=== PATIENT | male | born 1935 | race Caucasian/White ===

== ENCOUNTER 2019-10-13 15:43 | Inpatient (IN) | payer MEDICARE ==
[~2019-10-13 15:43] MED LIST: ARICEPT5 MG PO; BAYER CHEWABLE81 MG PO; SYNTHROID100 MCG PO; VITAMIN D5000 UNIT PO
[2019-10-13] MEDS ORDERED: AUGMENTIN 875-11 TAB (16:43)
[2019-10-13] MEDS ORDERED: CIMETIDINE200 MG (16:44)
[2019-10-13] MEDS ORDERED: CLARITIN 10 MG10 MG (16:45)
[2019-10-13] MEDS ORDERED: HYDROCORTISO28.35 G1 (16:45)
[2019-10-13] MEDS ORDERED: MELATONIN 3 MG1 TAB PO (16:46)
[2019-10-13] MEDS ORDERED: MYSOLINE 50 MG50 MG (16:47)
[2019-10-13] MEDS ORDERED: SENNA LAXATIVE8.6 MG (16:48)
[2019-10-13] MEDS ORDERED: TIROSINT100 MCG PO (16:49)
[2019-10-13] MEDS ORDERED: BAYER CHEWABLE81 MG PO (16:50)
[2019-10-13] MEDS ORDERED: ZOLOFT50 MG PO (16:50)
[2019-10-13] MEDS ORDERED: ROCEPHIN 500 M500 M1 IV (16:55)
[2019-10-13] MEDS ORDERED: TYLENOL ARTHRI650 MG PO (16:56)
[2019-10-13] MEDS ORDERED: ZOFRAN4 MG PO (16:57)
[2019-10-13] MEDS ORDERED: HEPARIN SOD5000 U/ML IV (16:58)
[2019-10-13] MEDS ORDERED: FAMOTIDINE10 MG PO (16:58)
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
[2019-10-13 17:16] VITALS: BP 139/61; BMI 23.3
[2019-10-13 20:10] VITALS: BP 128/63
--- NOTE | 2019-10-14 02:19 | NUR ---
B) RECEIVED IN DAYROOM, WATCHING TV, ISOLATED FROM PEERS, VERY CONFUSED ON ASSESSMENT, ONLY ORIENTED TO SELF. HE AMBULATES INDEPENDENTLY AND CAN MAKE HIS NEEDS KNOWN. EARLIER TONIGHT HE WANTED TO TAKE A SHOWER, SUDDENLY HE CHANGED HIS MIND AND REFUSED. THEN HE WENT TO BED WITHOUT ANY AGGRESSIVE BEHAVIOR. ALL BANDAIDS WERE REMOVED BY PATIENT AND HE REFUSED FOR ANY MORE TO BE APPLIED. I) ADMINISTERED MEDICATIONS. REDIRECT AND REORIENT NEEDED. R) COMPLIANT WITH MEDICATIONS. MONITOR FOR SAFETY AND BEHAVIORS. P) CONTINUE POC.
[2019-10-14 07:51] LABS: CHOL - HDL RATIO 4.3 ratio (2.3-4.9); THYROID STIMULATING HORMONE 8.96 uIU/mL (0.36-3.74)
[2019-10-14 09:30] VITALS: BP 101/54
[2019-10-14 10:00] VITALS: Wt 79.7 kg
--- NOTE | 2019-10-14 11:09 | NUR ---
RECEIVED SITTING UP IN CHAIR THIS AM.IS ORIENTED TO SELF,TOWN,HOSPITAL.READS MONTH AND YEAR OFF WALL CALENDER.COMPLIANT WITH STAFF AND MEDS.VISITS WITH PEERS.WILL CONTINUE WITH CURRENT PLAN OF CARE,MONITOR FOR SAFETY AND CHANGES.
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
[2019-10-14 19:16] VITALS: BP 125/71
--- NOTE | 2019-10-14 21:09 | NUR ---
B.) PT IS ALERT AND ORIENTED TO SELF AND PLACE. HE IS RECEIVED IN THE DAYROOM SOCIALIZING WITH PEERS. HE IS CALM, COOPERATIVE AND PLEASANT WITH STAFF. HE IS ABLE TO VOICE NEEDS AND WANTS. HE IS ABLE TO AMBULATE ON HIS OWN WITHOUT ASSIST. HE DENIES SI. I.) PROVIDED PM MEDICATIONS PRESCRIBED. REDIRECT NEEDED. R.) COMPLIANT WITH ALL MEDICATIONS. EASY TO REDIRECT. P.) WILL CONTINUE TO MONITOR.
--- NOTE | 2019-10-15 07:45 | NUR ---
REC'D PT IN HALLWAY WITH PEERS BY NURSES STATION. PT AWAKE AND ALERT TO PERSON AND PLACE. CALM AND COOPERATIVE WITH ASSESSMENT WITH CONFUSION NOTED. PRESCRIBED MEDS PROVIDED ORDERED. MED COMPLIANT. PT SELF ISOLATES AT TIMES. REDIRECT AND REORIENT NEEEDED. FALL PRECAUTIONS IN PLACE. WILL CPOC.
[2019-10-15 09:47] VITALS: BP 117/66
[2019-10-15 20:14] VITALS: BP 141/69
--- NOTE | 2019-10-15 20:15 | NUR ---
RECEIVED IN DAYROOM. SITTING CALMLY WITH PEERS AT HIS SIDE. CALM AND COOPERATIVE WITH CARE AND ASSESSMENT. NO SIGNS OF AGGRESSION. REDIRECT AND REORIENT NEEDED. CONTINUES TO SIT CALMLY IN DAYROOM. CONTINUE PLAN OF CARE.
--- NOTE | 2019-10-16 01:00 | NUR ---
[facility] CALLED TO CHECK ON PATIENT AND ALSO INFORMED STAFF THAT HE HAS A PROBLEM WITH PROPOSITIONING OTHER MALES TO PERFORM SEXUAL ACTS ON HIM AT [facility].
[2019-10-16 09:19] VITALS: BP 122/74
--- NOTE | 2019-10-16 10:40 | NUR ---
Nutrition Follow-up: Diet: Regular PO intake: 75-100% all Last BM: 10/14/19. WT: 173.2# (10/15/19); Admit Wt: 170# (10/13/19) Meds reviewed. No new labs. Recommend continue current diet. RD following.
--- NOTE | 2019-10-16 12:00 | NUR ---
RECEIVED IN HALLWAY OUTSIDE OF NURSES STATION. CALM AND COOPERATIVE WITH CARE AND ASSESSMENT. NO AGGRESSIVE BEHAVIORS. REDIRECT AND REORIENT NEEDED. EATING AT THIS TIME. CONTINUE PLAN OF CARE.
[2019-10-16 20:28] VITALS: BP 141/58
--- NOTE | 2019-10-16 22:38 | NUR ---
RECEIVED IN DAYROOM. SITTING IN A CHAIR WITH PEERS AT HIS SIDE. CALM AND COOPERATIVE WITH CARE AND ASSESSMENT. NO SIGNS OF AGGRESSION. REDIRECT AND REORIENT NEEDED. RESTING IN BED WITH EYES CLOSED AT THIS TIME. CONTINUE PLAN OF CARE.
[2019-10-17 05:10] LABS: RAPID PLASMA REAGIN Non Reactive (Non Reactive)
--- NOTE | 2019-10-17 10:02 | PN ---
PATIENT:THIEN MCFADDEN MEDICAL RECORD: [id number] LOCATION:DESTINEY Ye112 ADMISSION DATE: 10/13/19 PROGRESS NOTE DATE OF SERVICE: 10/16/2019 SUBJECTIVE: The patient's case was discussed with staff. He has no new complaint. OBJECTIVE: The patient is partially oriented. He has not been disruptive. His mood is euthymic. He is cooperative. He is delusional about the reasons that brought him here and is talking about things that are not connected or really understandable. ASSESSMENT: Vascular dementia. PLAN: I have reviewed the patient's current medications and will maintain them. If this level of improvement continue, I anticipate that this would be a brief hospitalization. TRANSINT:[id number] Voice Confirmation ID: [id number] DOCUMENT ID: [id number] ZOEY SUTHERLAND MD at 1002 CC: [id number] DICTATION DATE: 10/16/19 1652 HONING JOB SETTER: 10/17/[address] [facility] [address] [place] [address]
[2019-10-17 10:17] VITALS: BP 138/88
--- NOTE | 2019-10-17 12:00 | NUR ---
RECEIVED IN HALLWAY OUTSIDE OF NURSES STATION. CALM AND COOPERATIVE WITH CARE AND ASSESSMENT. NO AGGRESSIVE BEHAVIOR. REDIRECT AND REORIENT NEEDED. EATING AT THIS TIME. CONTINUE PLAN OF CARE.
[2019-10-17 20:53] VITALS: BP 135/39
--- NOTE | 2019-10-17 22:01 | NUR ---
RECEIVED IN DAYROOM. SITTING IN A CHAIR WITH PEERS AT HIS SIDE. CALM AND COOPERATIVE WITH CARE AND ASSESSMENT. NO SIGNS OF AGGRESSION. REDIRECT AND REORIENT NEEDED. CONTINUES TO SIT CALMLY IN DAYROOM. CONTINUE PLAN OF CARE.
--- NOTE | 2019-10-18 11:18 | NUR ---
pt sitting in chair at this time. pt is friendly with staff and peers. pt is alert to self only. confusion noted. pt is ADL independent. pt can make needs known. previous shift reported no behaviors. pt is compliant with meds, vitals and assessments. no beahviors noted at this time. will cont plan of care.
--- NOTE | 2019-10-18 13:27 | PN ---
PATIENT:THIEN MCFADDEN MEDICAL RECORD: [id number] LOCATION:MARISSAJennifer Belcher112 ADMISSION DATE: 10/13/19 PROGRESS NOTE DATE OF SERVICE: 10/17/2019 SUBJECTIVE: The patient's case was discussed with staff. He has no new complaint. OBJECTIVE: The patient denies intent to harm himself or others. He does tolerate his medicines well. He has limited insight about his situation. ASSESSMENT: Vascular dementia. PLAN: I am going to reduce the patient's melatonin to 3 mg at bedtime. He will be monitored for clinical changes associated with its use. TRANSINT:[id number] Voice Confirmation ID: [id number] DOCUMENT ID: [id number] ZOEY SUTHERLAND MD at 1327 CC: [id number] DICTATION DATE: 10/17/19 1603 BAGMAN/WOMAN: 10/17/19 2324 ADM IN [place] [id number] [place] [address]
--- NOTE | 2019-10-18 13:57 | NUR ---
Nutrition Follow-up: Diet: Regular PO intake: 100% x last 9 meals Last BM: 10/14/19. Wt: 173.2# (10/15/19); Admit Wt: 172# (10/13/19) Meds reviewed. No new labs. Recommend continue current diet. RD following.
[2019-10-18 14:18] VITALS: BP 126/63
[2019-10-18 20:00] VITALS: BP 129/69
--- NOTE | 2019-10-18 22:00 | NUR ---
RECEIVED IN DAY ROOM WATCHING TV. CALM AND COOPERATIVE WITH ASSESSMENT. ADMINISTERED MEDICATIONS WITH COMPLIANCE. CONFUSION NOTED BUT NO BEHAVIORS NOTED. REDIRECT AND REORIENT NEEDED. CONTINUE PLAN OF CARE.
[2019-10-19 09:40] VITALS: BP 108/59
--- NOTE | 2019-10-19 10:27 | NUR ---
PT SOCIALIZING WITH OTHER PEERS AT THIS TIME. PT IS CALM AND COOPERATIVE WITH STAFF. NO AGRESSION NOTED. NO BEHAVIORS NOTED. PT IS COMPLIANT WITH MEDS, VITALS AND ASSESSMENTS. PT CAN MAKE NEEDS KNOWN. AMBUALATES. WILL CONT PLAN OF CARE.
--- NOTE | 2019-10-19 14:39 | PN ---
PATIENT:THIEN MCFADDEN MEDICAL RECORD: [id number] LOCATION:Immanuel[facility]ILJennifer Belcher112 ADMISSION DATE: 10/13/19 PROGRESS NOTE DATE OF SERVICE: 10/18/2019 SUBJECTIVE: The patient's case was discussed with staff. He has no new complaint. OBJECTIVE: The patient is in good behavioral control with poor insight about his situation. He tolerates his medicines well. ASSESSMENT: Vascular dementia. PLAN: Current medicines have been reviewed. I am going to maintain the current dose of antidepressant. I believe he can reasonably be transitioned back to the correction if this level of improvement continues. TRANSINT:[id number] Voice Confirmation ID: [id number] DOCUMENT ID: [id number] ZOEY SUTHERLAND MD at 1439 CC: [id number] DICTATION DATE: 10/18/19 1619 SPECIAL PROJECTS COORDINATOR: 10/19/19 0052 ADM IN [facility] [address] [place] [address]
[2019-10-19 20:04] VITALS: BP 136/64
--- NOTE | 2019-10-19 23:00 | NUR ---
B.) PT IS ALERT AND ORIENTED TO SELF ONLY. HE IS CALM AND COOPERATIVE WITH STAFF. HE IS PLEASANT WHEN SPOKEN TO. HE HAS A BRIGHT AFFECT. HE IS ABLE TO AMBULATE WITHOUT ASSIST. I.) PROVIDED PM MEDICATIONS PRESCRIBED. REDIRECT NEEDED. R.) COMPLIANT WITH ALL MEDICATIONS. EASY TO REDIRECT. P.) WILL CONTINUE TO MONITOR.
[2019-10-20 09:22] VITALS: BP 113/52
--- NOTE | 2019-10-20 10:33 | PN ---
PATIENT:THIEN MCFADDEN MEDICAL RECORD: [id number] LOCATION:ImmanuelAPRILJennifer Belcher112 ADMISSION DATE: 10/13/19 PROGRESS NOTE DATE OF SERVICE: 10/19/2019 SUBJECTIVE: The patient's case was discussed with staff. He has no new complaint. OBJECTIVE: The patient denies intent to harm himself or others. He is tolerating his medicines well. He has not been inappropriate with any of the staff members or other patients. ASSESSMENT: Dementia. PLAN: Supportive and educational interventions were made. He will be maintained on current medicines. TRANSINT:[id number] Voice Confirmation ID: [id number] DOCUMENT ID: [id number] ZOEY SUTHERLAND MD at 1033 CC: [id number] DICTATION DATE: 10/19/19 1452 INSPECTOR BOILER: 10/19/19 2211 ADM IN [id number] [place] [address]
--- NOTE | 2019-10-20 11:37 | NUR ---
The patient is pleasant and calm this am he has not shown any aggression toward staff or other patients. He says "I think I am going back to the [facility] Wednesday." He ambulates independently. Provide prescribed meds. The patient is compliant with meds. He has poor insight into his situation. Continue POC.
[2019-10-20 20:10] VITALS: BP 111/52
--- NOTE | 2019-10-20 22:07 | NUR ---
B.) PT IS ALERT AND ORIENTED TO SELF ONLY. HE IS ABLE TO AMBULATE ON HIS OWN WITHOUT ASSIST AND MAKE HIS NEEDS KNOWN. HE IS LABILE IN HIS MOODS AND COMPLAINS OF FATIGUE. I.) PROVIDED PM MEDICATIONS PRESCRIBED. REDIRECT NEEDED. R.) COMPLIANT WITH ALL MEDICATIONS. EASY TO REDIRECT AT TIMES. P.) WILL CONTINUE TO MONITOR.
[2019-10-21 08:27] VITALS: BP 118/68
--- NOTE | 2019-10-21 09:29 | NUR ---
The patient is awake and alert, he is pleasant and calm, he has not shown any aggression today. He has not shown any inappropriate behaviors today. He ambulates independently. Provide prescribed meds. The patient is compliant with meds. Continue POC.
--- NOTE | 2019-10-21 11:28 | PN ---
PATIENT:THIEN MCFADDEN MEDICAL RECORD: [id number] LOCATION:DESTINE[facility] Belcher112 ADMISSION DATE: 10/13/19 PROGRESS NOTE DATE OF SERVICE: 10/20/2019 SUBJECTIVE: The patient's case was discussed with staff. He has no new complaint. OBJECTIVE: The patient has not been disruptive. He is sleeping and eating well. He has not been aggressive. I do not think he really has much recollection about the problems that precipitated this admission, but he has not had disruptive behaviors or inappropriate behaviors with any of our staff or patients and can go back to the half-way as soon as they are willing or able to take him. I would recommend he be in a different room and have a different roommate. TRANSINT:[id number] Voice Confirmation ID: [id number] DOCUMENT ID: [id number] ZOEY SUTHERLAND MD at 1128 CC: [id number] DICTATION DATE: 10/20/19 1537 MARINE SPECIALIST: 10/21/19 0106 ADM IN [facility] [address] [place] [id number]
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
[2019-10-21 20:00] VITALS: BP 143/65
--- NOTE | 2019-10-21 21:05 | NUR ---
B.) PT IS ALERT AND ORIENTED TO SELF ONLY. HE HAS POOR INSIGHT INTO HIS SITUATION. HE IS RECEIVED IN THE DAYROOM SOCIALIZING WITH PEERS. HE IS CALM AND COOPERATIVE WITH STAFF AT THIS TIME. HE IS ABLE TO AMBULATE ON HIS OWN WITHTOUT ASSIST. I.) PROVIDED PM MEDICATIONS PRESCRIBED. REDIRECT NEEDED. R.) COMPLIANT WITH ALL MEDICATIONS. EASY TO REDIRECT. P.) WILL CONTINUE TO MONITOR.
[2019-10-22 10:50] VITALS: BP 121/64
--- NOTE | 2019-10-22 11:42 | NUR ---
The patient is awake and alert, he has poor insight into his situation. He is oriented x3. He ambulates independently. He has not shown any aggression while he has been here. Provide prescribed meds. The patient is compliant with meds. Continue POC.
[2019-10-22 20:37] VITALS: BP 131/65
[2019-10-23 09:21] VITALS: BP 119/71
--- NOTE | 2019-10-23 11:15 | NUR ---
PT REMOVED FROM GROUP AT THIS TIME. PT IS VERY ARGUMENTIVE WITH STAFF AT THIS TIME. PT CONTINUES TO ARGUE WITH STAFF. REDIRECT AND REORIENT NEEDED. PRESCRIBED MEDS PROVIDED ORDERED. MED COMPLIANT. WILL CPOC.
--- NOTE | 2019-10-23 12:27 | PN ---
PATIENT:THIEN MCFADDEN MEDICAL RECORD: [id number] LOCATION:[facility] Belcher112 ADMISSION DATE: 10/13/19 PROGRESS NOTE DATE OF SERVICE: 10/22/2019 SUBJECTIVE: The patient's case was discussed with staff. He has no new complaint. OBJECTIVE: The patient is partially oriented. His mood is euthymic. His affect appropriate. Thought processes are goal directed. Memory, concentration, and abstraction abilities are mildly impaired. ASSESSMENT: Dementia. PLAN: The patient can be transitioned out of the hospital soon. His long-term prognosis is guarded. TRANSINT:[id number] Voice Confirmation ID: [id number] DOCUMENT ID: [id number] ZOEY SUTHERLAND MD at 1227 CC: [id number] DICTATION DATE: 10/22/19 1402 CUSTOMER GREETER: 10/23/19 0146 ADM IN [facility] [address] [place] [address]
[2019-10-23 20:05] VITALS: BP 122/61
--- NOTE | 2019-10-24 02:29 | NUR ---
B) Patient is alert and oriented to person, short with staff at times, wanting to go home I) Administered scheduled medications as ordered, monitored for safety R) Mediation compliant, resting now quietly in bed asleep P) Continue plan of care.
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
[2019-10-24 09:53] VITALS: BP 113/52
--- NOTE | 2019-10-24 16:13 | NUR ---
PT SITTING AND TALKING WITH PEERS AT THIS TIME. NO ACUTE DISTRESS NOTED. PT IS COMPLIANT WITH MEDS, VITALS AND ASSESSMENT. PT CAN MAKE NEEDS KNOWN. PT AMBULATES. PT IS ALERT TO SELF ONLY AND CAN BE ARGUMENTIVE WITH STAFF. NO SIGNS OF AGGRESSION NOTED. REDIRECT AND REORIENT NEEDED. WILL CONT PLAN OF CARE.
[2019-10-24 20:28] VITALS: BP 152/54
--- NOTE | 2019-10-24 22:44 | NUR ---
B) Patient is alert and oriented to person, calm and cooperative with care I) Administered scheduled medications, redirected as needed R) Mediation compliant, follows instructions, P) Continue plan of care.
[2019-10-25 09:16] VITALS: BP 122/68
--- NOTE | 2019-10-25 11:04 | NUR ---
PT IN DAYROOM WITH PEERS. ATTENDING GROUP AT THIS TIME. CALM AND COOPERATIVE WITH ASSESSMENT. PRESCRIBED MEDS PROVIDED ORDERED. MED COMPLIANT. NO BEHAVIORS NOTED AT THIS TIME. FALL PRECAUTIONS IN PLACE FOR SAFETY. WILL CPOC.
--- NOTE | 2019-10-25 15:58 | PN ---
PATIENT:THIEN MCFADDEN MEDICAL RECORD: [id number] LOCATION:ImmanuelAPRILJennifer Belcher112 ADMISSION DATE: 10/13/19 PROGRESS NOTE DATE OF SERVICE: 10/24/2019 SUBJECTIVE: The patient's case was discussed with staff. He has no new complaint. OBJECTIVE: The patient is in good behavioral control with limited insight about his condition. He is tolerating his medications well. ASSESSMENT: Vascular dementia. PLAN: I anticipate the patient can be transitioned back to the half-way soon. His long-term prognosis is guarded. TRANSINT:[id number] Voice Confirmation ID: [id number] DOCUMENT ID: [id number] ZOEY SUTHERLAND MD at 1558 CC: [id number] DICTATION DATE: 10/24/19 1535 PHARMACIST: 10/25/19 0009 ADM IN [facility] [address] [place] [address]
--- NOTE | 2019-10-25 16:06 | NUR ---
Nutrition Follow-up: Diet: Regular PO intake: ~88% average x last 8 meals Last BM: 10/21/19. Wt: 174.8# (10/22/19); Admit Wt: 172# (10/13/19) Meds and labs reviewed. Recommend continue current diet. RD following.
[2019-10-25 20:01] VITALS: BP 144/63
--- NOTE | 2019-10-25 23:48 | NUR ---
B) Patient is alert and oriented to person, calm and cooperative, follows instructions I) Administered scheduled medications as ordered, assisted with needs R) Medication compliant, follows unit rules P) Continue plan of care.
[2019-10-26 09:25] VITALS: BP 112/67
--- NOTE | 2019-10-26 10:19 | NUR ---
The patient is awake and alert, he has poor insight into his situation. He ambulates independently. He is pleasant and calm. Provide prescribed meds. The patient is compliant with meds. Provide prescribed meds. The patient is compliant with meds. He has not shown any aggression this am. Continue POC.
--- NOTE | 2019-10-26 12:01 | PN ---
PATIENT:THIEN MCFADDEN MEDICAL RECORD: [id number] LOCATION:ImmanuelAPRILJennifer Belcher112 ADMISSION DATE: 10/13/19 PROGRESS NOTE DATE OF SERVICE: 10/25/2019 SUBJECTIVE: The patient's case was discussed with staff. He has no new complaint. OBJECTIVE: The patient is in good behavioral control. He has poor insight about his situation. He is tolerating his medicines well. ASSESSMENT: Vascular dementia. PLAN: Current medicines and therapies have been reviewed and will be maintained. Long-term prognosis is guarded. TRANSINT:[id number] Voice Confirmation ID: [id number] DOCUMENT ID: [id number] ZOEY SUTHERLAND MD at 1201 CC: [id number] DICTATION DATE: 10/25/19 1609 WOODS OVERSEER: 10/26/19 0319 ADM IN [place] [id number] [place] [address]
[2019-10-26] MEDS ORDERED: FEXOFENADINE HC60 MG PO (12:04)
[2019-10-26] MEDS ORDERED: DONEPEZIL HCL5 MG PO (12:04)
[2019-10-26] MEDS ORDERED: LEVOTHYROXINE125 MCG PO (12:05)
[2019-10-26] MEDS ORDERED: TUMS PO (12:05)
[2019-10-26] MEDS ORDERED: BENADRYL 2% CRE30 GM TOPICAL (12:05)
[2019-10-26] MEDS ORDERED: MELATONIN 3 MG1 TAB PO (12:07)
[2019-10-26] MEDS ORDERED: VITAMIN B-12250 MC3 PO (12:07)
--- NOTE | 2019-10-26 13:24 | NUR ---
REPORT CALLED TO DEEP AT [facility]. PICKUP TIME SET FOR 1415 PER FACILITY. PAPERWORK FAXED AND PAPERCOPY SENT WITH FACILITY.
--- NOTE | 2019-10-26 14:38 | NUR ---
[facility] staff are here to picker box operator the patient and take him back to [facility]. He is happy to be going. He ambulated to the van and paperwork provided to their staff. The patient is now d/c'd from alf.
== END 2019-10-26 14:50 | DRG 884 ==
LOC: D.PSYCH 15:43
PROVIDERS: ADMIT Psychiatry & Neurology Psychiatry; ATTEND Psychiatry & Neurology Psychiatry
DX: F01.51 Vascular dementia, unspecified severity, with behavioral disturbance (principal); N39.0 Urinary tract infection, site not specified; J44.9 Chronic obstructive pulmonary disease, unspecified; E03.9 Hypothyroidism, unspecified; Z87.891 Personal history of nicotine dependence; R25.1 Tremor, unspecified; M54.2 Cervicalgia; M54.9 Dorsalgia, unspecified; E55.9 Vitamin D deficiency, unspecified; E78.5 Hyperlipidemia, unspecified; Z86.73 Personal history of transient ischemic attack (TIA), and cerebral infarction without residual deficits

== ENCOUNTER 2019-12-13 12:27 | Inpatient (IN) | payer MEDICARE ==
[~2019-12-13] VITALS: Ht 185.4 cm; Wt 66.9 kg
[~2019-12-13 12:27] MED LIST changes: +AUGMENTIN 875-11 TAB; +BENADRYL 2% CRE30 GM TOPICAL; +CIMETIDINE200 MG; +CLARITIN 10 MG10 MG; +DONEPEZIL HCL5 MG PO; +FAMOTIDINE10 MG PO; +FEXOFENADINE HC60 MG PO; +HEPARIN SOD5000 U/ML IV; +HYDROCORTISO28.35 G1; +LEVOTHYROXINE125 MCG PO; +MELATONIN 3 MG1 TAB PO; +MYSOLINE 50 MG50 MG; +ROCEPHIN 500 M500 M1 IV; +SENNA LAXATIVE8.6 MG; +TIROSINT100 MCG PO; +TUMS PO; +TYLENOL ARTHRI650 MG PO; +VITAMIN B-12250 MC3 PO; +ZOFRAN4 MG PO; +ZOLOFT50 MG PO
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
[2019-12-13 13:10] VITALS: BP 141/68
[2019-12-13 14:50] VITALS: BMI 22.9
[2019-12-13 15:37] LABS: BASOPHILS 0.8 % (0-2); EOSINOPHILS 2.7 % (0-7); HEMOGLOBIN 14.5 g/dL (13.5-17.5); IMMATURE GRANULOCYTES 0.3 % (0-5); LYMPHOCYTES 27.3 % (15-50); MCH 31.2 pg (26.0-34.0); MCHC 33.7 g/dL (31.0-37.0); MCV 92.5 fL (80.0-100.0); MEAN PLATELET VOLUME 10.2 fL (7.4-10.4); MONOCYTES 8.1 % (2-11); NEUTROPHILS 60.8 % (40-80); PLATELET COUNT 240 10x3/uL (130-400); RBC 4.65 10x6/uL (4.20-6.10); WBC 6.6 10x3/uL (4.8-10.8)
[2019-12-13 16:29] LABS: ALBUMIN 3.7 g/dL (3.4-5.0); ANION GAP 12.4 mmol/L (8-16); BILIRUBIN - TOTAL 0.31 mg/dL (0.2-1.3); CARBON DIOXIDE 26.4 mmol/L (21.0-32.0); CHOL - HDL RATIO 5.2 ratio (2.3-4.9); CREATININE - SERUM 1.8 mg/dL (0.6-1.3); LDL-HDL RATIO 3.7 ratio (1.5-3.5); POTASSIUM - SERUM 4.8 mmol/L (3.5-5.1); PROTEIN - SERUM 7.4 g/dL (6.4-8.2); THYROID STIMULATING HORMONE 0.34 uIU/mL (0.36-3.74)
[2019-12-13 17:43] VITALS: BP 141/68; Ht 185.4 cm; Wt 66.9 kg
--- NOTE | 2019-12-13 20:31 | NUR ---
PT UP IN ROOM, GETTING READY FOR BED, ADM 2100 MED PO PER MD ORDERS, SEE EMAR, PT COLETTE WELL
[2019-12-13 20:50] VITALS: BP 130/57
--- NOTE | 2019-12-14 06:01 | NUR ---
PT UP IN ROOM, JUST COMING OUT OF BR, ADM 0600 MED PO PER MD ORDERS, SEE EMAR, WITH FRESH H20, PT COLETTE WELL
[2019-12-14 06:11] LABS: RAPID PLASMA REAGIN Non Reactive (Non Reactive)
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
[2019-12-14 09:43] VITALS: BP 118/66
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
--- NOTE | 2019-12-14 15:05 | NUR ---
PT IN ROOM AWAITING RESULTS FOR SARS-19 RESULTS. PT IS ALERT TO SELF ONLY. PT IS CONFUSED. REDIRECT AND REORIENT NEEDED. PT HAS HAD NO BEHAVIORS NOTED. PT IS CALM AND COOPERATIVE WITH STAFF. PT IS COMPLIANT WITH MEDS, VITALS AND ASSESSMENTS. WILL CONT PLAN OF CARE.
--- NOTE | 2019-12-14 17:40 | NUR ---
urine speciman obtained. clean catch. date and intialed at bedside.
[2019-12-14 18:06] LABS: BILIRUBIN NEGATIVE (NEGATIVE); KETONE NEGATIVE (NEGATIVE); NITRITE NEGATIVE (NEGATIVE); UROBILINOGEN NORMAL mg/dL (< 2)
[2019-12-14 20:27] VITALS: BP 100/45
--- NOTE | 2019-12-15 03:24 | NUR ---
B) Patient is alert and oriented to self, calm and cooperative, I) administered scheduled medications as ordered, monitored for safety R) Mediation compliant, isolated and waiting on Covid test results, P) Continue plan of care.
--- NOTE | 2019-12-15 09:02 | PN ---
PATIENT:THIEN MCFADDEN MEDICAL RECORD: [id number] LOCATION:[facility] ADMISSION DATE: 12/13/19 PROGRESS NOTE DATE OF SERVICE: 12/14/2019 SUBJECTIVE: The patient's case was discussed with staff. He has no new complaint. OBJECTIVE: The patient is in good behavioral control with poor insight about his situation. He tolerates his medicines well. ASSESSMENT: Vascular dementia. PLAN: Brief supportive and educational interventions were made. Long-term prognosis is guarded. TRANSINT:[id number] Voice Confirmation ID: [id number] DOCUMENT ID: [id number] ZOEY SUTHERLAND MD at 0902 CC: [id number] DICTATION DATE: 12/14/19 1626 CERAMICS TEACHER: 12/14/19 210 ADM IN [place] [id number] [place] [id number]
[2019-12-15 09:26] VITALS: BP 129/65
--- NOTE | 2019-12-15 09:58 | NUR ---
Nutrition Follow-up: Diet: Regular PO intake: 100 - 50 - 100% x last 3 meals Last BM: 12/14/19. Wt: 174# (12/13/19) Meds noted: senokot. No new chem labs. Recommend continue current diet. Encourage PO intake at meal times and offer oral nutrition supplements if PO intake inadequate. RD following.
--- NOTE | 2019-12-15 11:17 | NUR ---
The patient is awke this am, he is staying in his room until the COVID test comes back. He is making some inappropriate statements. Explained to him that the protocol says he will need to stay in his room until the COVID test comes back negative. Explained "It was the test they put up your nose." He said "I better not have to have another one of those tests or I will kill you." Explained to him that is inappropriate and he should not say that. He said "Well, I better not get another one." The patient is has poor short term memory recall. He has poor insight into his situation. He ambulates, toilets, and feeds himself. Provide prescribed meds. The patient is compliant with meds. Continue POC.
[2019-12-15 20:19] VITALS: BP 122/57
--- NOTE | 2019-12-15 20:32 | NUR ---
B.) PT IS ALERT AND ORIENTED TO SELF ONLY. HE IS RECEIVED IN HIS ROOM RESTING IN BED. HE IS WITHDRAWN BUT UNDERSTANDS THAT HE HAS TO REMAIN IN HIS ROOM UNTIL HIS COVID RESULTS COME BACK. HE IS DEMANDING AT TIMES. I.) PROVIDED HIS PM MEDICATIONS PRESCRIBED. REDIRECT OFTEN. R.) COMPLIANT WITH ALL MEDICATIONS. EASY TO REDIRECT. P.) WILL CONTINUE TO MONITOR.
--- NOTE | 2019-12-16 07:35 | NUR ---
The patient peeked his head out of his room and he said "I'm ready to eat, where's my tray?" He peeked his head out as he is still PUI. Explained to him that the trays have not arrived yet, but that they should be here in less than an hour. He went back into his room. He is oriented to self, he has not shown aggression this am. He is able to ambulate, toilet, and feed himself. He does not have any clothes on and staff requested that he dress, he ignored the request. Provide prescribed meds. Encourage staying in his room until his COVID test results are back and are negative. Continue POC.
--- NOTE | 2019-12-16 08:18 | NUR ---
The patient stuck his head out of his room and requested his breakfast tray. Explained to him that it is not here yet and it is probably running late. He said "You know what, you keep it, I don't want it." Said "Ok" He went back into his room.
--- NOTE | 2019-12-16 09:21 | NUR ---
Trays are here and took the breakfast to the patient and he refused it, saying "I don't want the damn thing." Will karin patient refused breakfast.
[2019-12-16 10:07] VITALS: BP 116/74
--- NOTE | 2019-12-16 11:02 | NUR ---
The patient is resting in his room with eyes closed, even unlabored respirations. He told Shweta Vasquez he did not want to be around all of those people he was fine when he had a room to himself.
--- NOTE | 2019-12-16 11:49 | NUR ---
COVID 19 test results indicate not detected. So the patient can come out of his room, but he said "I am not coming out of my room, I don't want to go down there."
--- NOTE | 2019-12-16 13:38 | NUR ---
The patient came out of his room and walked to the day room. He "Well, I guess I will come out of my hole." Offered him something to eat, he said "No, I'll hold off until dinner time."
[2019-12-16 21:30] VITALS: BP 99/54
--- NOTE | 2019-12-17 02:42 | NUR ---
B) Patient is alert and oriented to person and being in a hospital, calm and cooperative, no aggression noted, I) Administered scheduled medications as ordered, monitored for safety R) Medication compliant, pleasant and quiet, watching TV in day room, P) Continue plan of care.
[2019-12-17 08:50] VITALS: BP 135/69
--- NOTE | 2019-12-17 10:25 | NUR ---
The patient is awake, he is calm this am, he came out of his room without fussing or fighting. He is pleasant and calm, he has not made any inappropriate comments, and he has not shown any aggression. Provide prescribed meds. The patient is compliant with meds. He showed me his arms and legs. He has a rash on his bilateral arms and legs. Brought it to Dr. Og's attention and he spoke with the patient about it. The patient is able to ambulate, toilet, and feed herself. Continue POC.
--- NOTE | 2019-12-17 19:47 | NUR ---
RECEIVED IN DAYROOM. SITTING AT THE TABLE WITYH PEERS AT HIS SIDE. CALM AND COOPERATIVE WITH CARE AND ASSESSMENT. NO SIGNS OF AGGRESSION. REDIRECT AND REORIENT NEEDED. CONTINUES TO SIT CALMLY IN DAYROOM. CONTINUE PLAN OF CARE.
[2019-12-17 20:31] VITALS: BP 139/67
[2019-12-18 08:35] VITALS: BP 108/66
--- NOTE | 2019-12-18 17:39 | NUR ---
RECEIVED IN HALLWAY OUTSIDE OF NURSES STATION. CALM AND COOPERATIVE WITH CARE AND ASSESSMENT. EASILY AGITATED. ARGUMENTATIVE WITH OTHER PATIENTS. REDIRECT AND REORIENT NEEDED. EATING AT THIS TIME. CONTINUE PLAN OF CARE.
[2019-12-18 20:45] VITALS: BP 130/46
[2019-12-19 08:32] VITALS: BP 111/50
--- NOTE | 2019-12-19 10:44 | NUR ---
AWAKE AND ALERT TO PERSON AND TIME. CALM AMD COOPERATIVE WITH ASSESSMENT. PRESCRIBED MEDS PROVIDED ORDERED. MED COMPLIANT. PT DENIES SI AT THIS TIME. PT CAN BE ARGUMENTIVE WITH PEERS AT TIMES. EASILY AGITATED AT TIMES PER STAFF AND PEERS. REDIRECT AND REORIENT NEEDED. WILL CPOC.
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
[2019-12-19 19:56] VITALS: BP 141/64
--- NOTE | 2019-12-19 21:50 | NUR ---
RECEIVED IN DAYROOM. SITTING IN A CHAIR WITH PEERS AT HIS SIDE. CALM AND COOPERATIVE WITH CARE AND ASSESSMENT.NO SIGNS OF AGGRESSION. REDIRECT AND REORIENT NEEDED. RESTING IN BED WITH EYES CLOSED. CONTINUE PLAN OF CARE.
[2019-12-20 08:30] VITALS: BP 103/60
--- NOTE | 2019-12-20 08:30 | PN ---
PATIENT:THIEN MCFADDEN MEDICAL RECORD: [id number] LOCATION:[facility] ADMISSION DATE: 12/13/19 PROGRESS NOTE DATE OF SERVICE: 12/19/2019 SUBJECTIVE: The patient's case was discussed with staff. He has no new complaint. OBJECTIVE: The patient is participating in treatment. He is not eating adequately. I am going to start him on Seroquel. ASSESSMENT: Vascular dementia. PLAN: The patient's agitation is better, but again as documented before, the agitation at the [facility] is related to the fact that he does not have a private room. He has a private room here at the hospital. I do not think it is related to the [facility]mate he has at the [facility]. It is just the fact that he does not have his own room. TRANSINT:[id number] Voice Confirmation ID: [id number] DOCUMENT ID: [id number] ZOEY SUTHERLAND MD at 0830 CC: [id number] DICTATION DATE: 12/19/191731 ROVING TESTER LABORATORY: 12/20/19 0258 ADM IN [facility] [address] [place] [id number]
--- NOTE | 2019-12-20 13:13 | NUR ---
Nutrition Follow-up: Diet: Regular PO intake: ~73% average x last 9 meals. Noted that patient refused 2 meals the day before yesterday. He appears to be eating better now. Noted MD started pt on appetite stimulant. Last BM: 12/20/19 x 3. Wt: 172# (12/17/19); Admit Wt: 174# (12/13/19) Meds noted: megace (started 12/19/19), senokot. No new chem labs. Recommend continue current nutritional regimen. RD following.
--- NOTE | 2019-12-20 14:18 | NUR ---
PT SITTING IN DAYROOM WITH PEERS. AWAKE AND ALERT X 3. CALM AND COOPERATIVE WITH ASSESSMENT. PRESCRIBED MEDS PROVIDED ORDERED. MED COMPLIANT. NO BEHAVIORS NOTED AT THIS TIME. REDIRECT AND REORIENT NEEDED. FALL PRECAUTIONS IN PLACE. WILL CPOC.
--- NOTE | 2019-12-20 14:44 | NUR ---
rec'd this am, patient ambulatory in hallway. noted tremors to sarah. hands. patient a/o person and situation. patient very quiet and reserved. enouraged patient to participate with one to one and group activities today. patient has displayed no agression to staff or other patients today. offered positive feedback for absense of behaviors.
[2019-12-20 20:00] VITALS: BP 123/57
--- NOTE | 2019-12-20 22:17 | NUR ---
B.) PT IS ALERT AND ORIENTED TO SELF, TIME, AND SITUATION. HE IS UNSURE OF WHAT HOSPITAL HE IS CURRENTLY AT. HE IS CALM AND COOPERATIVE WITH STAFF. HE IS OFTEN SEEN ASSISTING OTHER PATIENTS. I.) PROVIDED PM MEDICATIONS PRESCRIBED. REDIRECT NEEDED. R.) COMPLIANT WITH ALL MEDICATIONS. EASY TO REDIRECT. P.) WILL CONTINUE TO MONITOR.
[2019-12-21 08:07] VITALS: BP 95/54
--- NOTE | 2019-12-21 14:06 | NUR ---
Rec'd patient up ambulatory. A/O times 2 person and situation. converses with nurse in clear, consise tone.Able to follow directions. rev'd current medications and he nods in agreement of understanding. no behaviors today. participated in one to one and group activity/ session today.patient encouraged to express any questions/concerned. positive feedback provided.
--- NOTE | 2019-12-21 15:38 | PN ---
PATIENT:THIEN MCFADDEN MEDICAL RECORD: [id number] LOCATION:[facility] ADMISSION DATE: 12/13/19 PROGRESS NOTE DATE OF SERVICE: 12/20/2019 SUBJECTIVE: The patient's case was discussed with staff. He has no new complaint. OBJECTIVE: The patient denies intent to harm himself or others. He has been in good behavioral control. He still insists that he has got to have [facility] own [facility] the [facility] and explaining to him why that is not possible, is not very effective. ASSESSMENT: Vascular dementia. PLAN: Current medicines have been reviewed and will be maintained. Long-term prognosis is guarded. TRANSINT:[id number] Voice Confirmation ID: [id number] DOCUMENT ID: [id number] ZOEY SUTHERLAND MD at 1538 CC: [id number] DICTATION DATE: 12/20/19 1620 SHOPPING CENTRE MANAGER: 12/21/19 0113 ADM IN [facility] [address] [place] [address]
[2019-12-21 20:29] VITALS: BP 128/67
--- NOTE | 2019-12-21 20:51 | NUR ---
B.) PT IS ALERT AND ORIENTED TO SELF, PLACE AND SITUATION. HE IS CALM AND COOPERATIVE WITH STAFF. HE IS OFTEN OBSERVED ATTEMPTING TO HELP OTHER PATIENTS. HE IS PLEASANT WITH STAFF. I.) PROVIDED PM MEDICATIONS PRESCRIBED. REDIRECT NEEDED. R.) COMPLIANT WITH ALL MEDICATIONS. EASY TO REDIRECT. P.) WILL CONTINUE TO MONITOR.
--- NOTE | 2019-12-22 08:13 | NUR ---
The patient is awake and alert, he is calm and quiet, he has not shown any aggression today. Provide prescribed meds. The patient is compliant with meds. He ambulates, toilets, and feeds himself. He is cooperative and socializes a little with staff and peers. Continue POC.
[2019-12-22 09:52] VITALS: BP 92/50
[2019-12-22 20:27] VITALS: BP 114/61
--- NOTE | 2019-12-22 21:54 | NUR ---
RECEIVED PATIENT IN DAYROOM, SITTING TO HIMSELF, CALM, HE IS CONFUSED, COMPLIANT WITH MEDS. HE WAS CALM. ABLE TO MAKE NEEDS AND CONCERNS KNOWN. NO ADVERSE REACTION TO MES. WILL FOLLOW POC
[2019-12-23 08:01] VITALS: BP 104/62
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
[2019-12-23 20:41] VITALS: BP 120/60
--- NOTE | 2019-12-23 20:42 | NUR ---
RECEIVED PATIENT IN DAYROOM, HE IS SITTING TO HIMSELF, SLIGHT FLAT AFFECT, COMPLIANT WITH MEDS. NO ADVERSE REACTION NOTED. HE HAS A "NEGATIVE" PERSONALITY. HE CAN MAKE HIS NEEDS AND CONCERNS KNOWN. WILL FOLLOW POC
[2019-12-24 08:30] VITALS: BP 118/65
--- NOTE | 2019-12-24 12:00 | NUR ---
RECEIVED IN HALLWAY OUTSIDE OF NURSES STATION. CALM AND COOPERATIVE WITH CARE AND ASSESSMENT. NO AGGRESSIVE BEHAVIOR. REDIRECT AND REORIENT NEEDED. EATING AT THIS TIME. CONTINUE PLAN OF CARE.
[2019-12-24 21:50] VITALS: BP 129/45
--- NOTE | 2019-12-24 23:32 | NUR ---
RECEIVED IN DAYROOM. SITTING IN A CHAIR WITH PEERS AT HIS SIDE. CALM AND COOPERATIVE WITH CARE AND ASSESSMENT. NO SIGNS OF HALLUCINATIONS OR AGGRESSION. REDIRECT AND REORIENT NEEDED. RESTING IN BED WITH EYES CLOSED AT THIS TIME. CONTINUE PLAN OF CARE.
[2019-12-25 10:40] VITALS: BP 102/66
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
--- NOTE | 2019-12-25 13:06 | NUR ---
PT IS AWAKE AND ALERT TO PERSON ONLY. CALM AND COOPERATIVE WITH ASSESSMENT AT THIS TIME. PRESCRIBED MEDS PROVIDED ORDERED. MED COMPLIANT. NO BEHAVIORS NOTED. COVID TEST COLLECTED. RESULTS PENDING. WILL CPOC.
[2019-12-25 20:05] VITALS: BP 152/60
--- NOTE | 2019-12-25 21:34 | NUR ---
B.) PT IS ALERT AND ORIENTED TO SELF ONLY. HE IS CALM AND COOPERATIVE WITH STAFF. NO AGGRESSION NOTED. HE IS ABLE TO VOICE NEEDS AND WANTS. I.) PROVIDED PM MEDICATIONS PRESCRIBED. REDIRECT NEEDED. R.) COMPLIANT WITH ALL MEDICATIONS. EASY TO REDIRECT. P.) WILL CONTINUE TO MONITOR.
[2019-12-26 08:02] VITALS: BP 113/68
--- NOTE | 2019-12-26 11:31 | PN ---
PATIENT:THIEN MCFADDEN MEDICAL RECORD: [id number] LOCATION:[facility] ADMISSION DATE: 12/13/19 PROGRESS NOTE DATE OF SERVICE: 12/25/2019 SUBJECTIVE: The patient's case was discussed with staff. He has no new complaint. OBJECTIVE: The patient is in good behavioral control. He has limited insight about his condition. He has not been aggressive today. ASSESSMENT: Vascular dementia. PLAN: Current medicines have been reviewed and will be maintained. His long-term prognosis is guarded. I anticipate he can be transitioned out of the hospital soon. TRANSINT:[id number] Voice Confirmation ID: [id number] DOCUMENT ID: [id number] ZOEY SUTHERLAND MD at 1131 CC: [id number] DICTATION DATE: 12/25/19 1522 SUPERVISOR BEATER ROOM: 12/26/19 0021 ADM IN [facility] [address] [place] [address]
--- NOTE | 2019-12-26 12:00 | NUR ---
RECEIVED IN HALLWAY OUTSIDE OF NURSES STATION. CALM AND COOPERATIVE WITH CARE AND ASSESSMENT. NO AGGRESSION. REDIRECT AND REORIENT NEEDED. EATING AT THIS TIME. CONTINUE PLAN OF CARE.
[2019-12-26] MEDS ORDERED: DONEPEZIL HCL10 MG PO (16:15)
[2019-12-26] MEDS ORDERED: Megace ES [CHEMO] PO (16:16)
[2019-12-26] MEDS ORDERED: KENALOG 0.1 % O15 GM TOPICAL (16:16)
[2019-12-26] MEDS ORDERED: LEVOTHYROXINE112 MCG PO (16:16)
[2019-12-26] MEDS ORDERED: ZOLOFT50 MG PO (16:16)
[2019-12-26 20:23] VITALS: BP 111/60
--- NOTE | 2019-12-27 09:20 | NUR ---
PT SITTING AT THIS TIME PARTICIPATING IN GROUP. PT IS ALERT AND ORIENTED TO SELF. PT IS COMPLIANT WITH MEDS, VITALS AND ASSESSMENTS. PT CAN MAKE NEEDS KNOWN. NO BEHAVIORS NOTED. PT IS ADL INDEPENDENT. AMBULATES. WILL CONT PLAN OF CARE.
[2019-12-27 09:56] VITALS: BP 127/80
--- NOTE | 2019-12-27 11:21 | NUR ---
NURSE CALLED REPORT TO [facility] NURSE LINDA KENDRICK, RN. NURSE GAVE AN REPORT AND GENERAL OVERVIEW OF PTS BEHAVIOR. PT IS MED COMPLIANT. NO BEHAVIORS NOTED. TENDS TO KEEP TO HIMSELF BUT IS COMPLIANT WITH STAFF. PAPER COPY TO BE SENT WITH PT. PAPERWORK FAXED TO [facility]. INCLUDING COVID RESULTS AND TONEY WAS FAXED. NURSE SPOKE WITH JILL FROM [facility]. HE REQUESTED TONEY. TONEY SENT IN WELL AND PAPER COPY SENT WITH PT.
--- NOTE | 2019-12-27 11:28 | NUR ---
PT DISCHARGED WITH SPACE SCHEDULER FROM [facility]. PT BELONGINGS SENT WITH PT. D/C WEIGHT: 174.4 W/C SCALE. PAPERWORK FAXED AND PAPER COPY SENT [facility] PT AT THIS TIME. NURSE WALKED PT TO THE VAN. PT TOLERATED D/C VERY WELL. PT WAS SMILING AND READY TO LEAVE.
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
== END 2019-12-27 11:30 | DRG 884 ==
LOC: D.PSYCH 12:27
PROVIDERS: ADMIT Psychiatry & Neurology Psychiatry; ATTEND Psychiatry & Neurology Psychiatry
DX: F01.51 Vascular dementia, unspecified severity, with behavioral disturbance (principal); E03.9 Hypothyroidism, unspecified; J44.9 Chronic obstructive pulmonary disease, unspecified; D55.9 Anemia due to enzyme disorder, unspecified; K21.9 Gastro-esophageal reflux disease without esophagitis; K59.00 Constipation, unspecified; R25.1 Tremor, unspecified; L30.9 Dermatitis, unspecified; Z86.73 Personal history of transient ischemic attack (TIA), and cerebral infarction without residual deficits